=== PATIENT | male | born 1960 | race Caucasian/White ===

== ENCOUNTER 2021-02-10 12:26 | Emergency (ER) | payer MEDICAID ==
[~2021-02-10] VITALS: Ht 180.3 cm; Wt 81.8 kg
[~2021-02-10 12:26] MED LIST: NO HOME MEDS; OMEP40CA21 PO
[2021-02-10 13:17] VITALS: BP 131/82
--- NOTE | 2021-02-10 14:27 | NUR ---
notified the provider belia joyce that pt is covid positive.
[2021-02-10] MEDS ORDERED: ALBU8HFA PO (14:31)
[2021-02-10] MEDS ORDERED: BENZ-38 PO (14:31)
== END 2021-02-10 14:55 | disposition home or self-care (01) ==
LOC: ER 12:27
DX: U07.1 COVID-19 (principal); R50.9 Fever, unspecified; R05.9 Cough, unspecified; F17.200 Nicotine dependence, unspecified, uncomplicated; Z79.899 Other long term (current) drug therapy
CPT/HCPCS: 87635; 99283; C9803

== ENCOUNTER → 2023-06-28 | Outpatient (CLI) | payer MEDICAID | END | disposition home or self-care (01) | LOC: RAD 12:16 | PROVIDERS: ATTEND Student in an Organized Health Care Education/Training Program | DX: M79.672 Pain in left foot (principal) | CPT/HCPCS: 73630 ==

== ENCOUNTER 2023-09-18 09:14 | Outpatient (CLI) | payer MEDICAID | END 2023-09-18 23:59 | disposition home or self-care (01) | LOC: RAD 09:14 | PROVIDERS: ATTEND Preventive Medicine Public Health & General Preventive Medicine | DX: D13.5 Benign neoplasm of extrahepatic bile ducts (principal); K74.69 Other cirrhosis of liver | CPT/HCPCS: 76705 ==

== ENCOUNTER 2024-05-29 11:05 | Emergency (ER) | payer MEDICAID ==
[~2024-05-29] VITALS: Ht 180.3 cm; Wt 76.5 kg
[2024-05-29 11:10] VITALS: TEMP 97.8
[2024-05-29 12:50] VITALS: BP 132/98; PULSE 98; RESP 15; O2SAT 98
[2024-05-29 14:42] LABS: BASOPHILS % (AUTO) 0.7 % (0-1); EOSINOPHILS # (AUTO) 0.1 X10'3 (0-0.9); EOSINOPHILS % (AUTO) 0.9 % (0-6); LYMPHOCYTES # (AUTO) 1.4 X10'3 (1.1-4.8); LYMPHOCYTES % (AUTO) 22.3 % (21-51); MEAN CORPUSCULAR HEMOGLOBIN 30.8 PG (27.0-31.0); MEAN CORPUSCULAR HGB CONC 33.7 g/dL (33.0-36.5); MEAN CORPUSCULAR VOLUME 91.2 FL (78-98); MEAN PLATELET VOLUME 7.9 FL (7.4-10.4); MONOCYTES # (AUTO) 0.5 X10'3 (0-0.9); MONOCYTES % (AUTO) 8.6 % (2-12); NEUTROPHILS # (AUTO) 4.2 X10'3 (1.8-7.7); NEUTROPHILS % (AUTO) 67.5 % (42-75); PLATELET COUNT 225 X10'3 (140-440); RED BLOOD COUNT 6.03 X10'6 (4.70-6.10); RED CELL DISTRIBUTION WIDTH 13.9 % (11.5-14.5); WHITE BLOOD COUNT 6.2 X10'3 (4.5-11.0)
[2024-05-29 14:52] LABS: HEMOGLOBIN 18.5 g/dl (14.0-17.9)
[2024-05-29 14:58] LABS: ALANINE AMINOTRANSFERASE 12 U/L (12-78); ALBUMIN 3.6 G/DL (3.4-5.0); ALBUMIN/GLOBULIN RATIO 0.9 (1.1-1.5); ALKALINE PHOSPHATASE 79 IU/L (46-116); ANION GAP 11 (8-16); ASPARTATE AMINO TRANSFERASE 17 U/L (10-37); BILIRUBIN,TOTAL 0.6 MG/DL (0.1-1.0); BLOOD UREA NITROGEN 13 MG/DL (7-18); BUN/CREATININE RATIO 12.7 (10.0-20.0); CALCIUM 9.2 MG/DL (8.5-10.1); CHLORIDE 100 MMOL/L (99-107); CREATININE 1.02 MG/DL (0.60-1.10); GLUCOSE 95 MG/DL (70-104); POTASSIUM 4.1 MMOL/L (3.5-5.1); SODIUM 139 MMOL/L (135-145); TOTAL CARBON DIOXIDE 28.5 MMOL/L (24-32); TOTAL PROTEIN 7.6 G/DL (6.4-8.2); eCRCL 79 ML/MIN; eGFR 74 ML/MIN
== END 2024-05-29 16:09 | disposition home or self-care (01) ==
LOC: ER 11:05
DX: R42 Dizziness and giddiness (principal); H54.62 Unqualified visual loss, left eye, normal vision right eye
CPT/HCPCS: 36415; 70450; 80053; 85025; 99284; J7030